=== PATIENT | female | born 1980 | race Caucasian/White ===

== ENCOUNTER 2017-08-11 09:08 | Emergency (ER) | payer BC ==
[2017-08-11 09:54] LABS: #Eosinphils 0.1 thou/uL (0.0-0.7); #Lymphocytes 2.4 thou/uL (1.20-3.40); #Monocytes 0.3 thou/uL (0.11-0.59); #Neutrophils 5.2 thou/uL (1.40-6.50); %Basophils 0.1 % (0.0-1.0); %Eosinophils 0.9 % (0.0-10.0); %Lymphocytes 29.9 % (21.0-51.0); %Monocytes 3.3 % (0.0-10.0); Hematocrit 44.6 % (36.0-47.0); Mean Platelet Volume 6.3 fL (7.4-10.4); Red Blood Cell (RBC) Count 4.98 mill/uL (4.20-5.40)
[2017-08-11 10:14] LABS: ALT (SGPT) 25 U/L (8-55); AST (SGOT) 16 U/L (5-34); Alkaline Phosphatase 57 U/L (40-150); Anion Gap 16 mmol/L (10-20); BUN (Urea Nitrogen) 22 mg/dL (7.0-18.7); Bilirubin, Total 1.1 mg/dL (0.2-1.2); Calc. Creatinine Clearance 0 mL/min (70-130); Calcium 10.2 mg/dL (7.8-10.44); Carbon Dioxide 25 mmol/L (22-29); Chloride 95 mmol/L (98-107); Estimated GFR-MDRD 47; Globulin 3.3 g/dL (2.4-3.5); Protein, Total 8.1 g/dL (6.0-8.3)
[2017-08-11] MEDS ORDERED: Fentanyl 100 MCG/2 ML VIAL ONE ×2 (10:33→11:48)
[2017-08-11] MEDS ORDERED: Ondansetron HCl/PF 4 MG/2 ML Vial ONE (10:33)
--- NOTE | 2017-08-11 11:00 | ULT ---
ULTRASOUND ABDOMEN LIMITED: (RIGHT UPPER QUADRANT) HISTORY: 37-year-old female with right upper quadrant abdominal pain, nausea, and emesis. FINDINGS: The gallbladder has normal wall thickness and has no evidence of gallstones or sludge. The hepatic e chogenicity is diffusely increased, consistent with fatty liver. The right kidney has normal echogen icity, and there is no hydronephrosis. No free fluid is identified. The inferior vena cava is visua lized. The pancreas is visualized, although ultrasound is relatively insensitive for pancreatic path ology compared to CT and MRI. There is no biliary dilation. The common duct caliber is 3 mm. IMPRESSION: 1) Hepatic steatosis. 2) Otherwise negative. lizz POS: [facility]
[2017-08-11 11:13] LABS: Bilirubin Negative (Negative); Blood, Urine Negative (Negative); Glucose, Urine (Dipstick) 250 mg/dL (Negative); Ketone, Urine Negative (Negative); Nitrite Negative (Negative); Protein, Urine (Dipstick) Negative (Neg-Trace); Urobilinogen 0.2 mg/dL (0.2-1.0)
[2017-08-11] MEDS ORDERED: diphenhydrAMINE 50 MG/ML VIAL ONE (12:15)
[2017-08-11] MEDS ORDERED: Metoclopramide HCl 10 MG/2 ML VIAL ONE (12:15)
== END 2017-08-11 13:26 | disposition home or self-care (01) ==
LOC: ERS 09:08
DX: E86.0 Dehydration (principal); K04.7 Periapical abscess without sinus; R11.2 Nausea with vomiting, unspecified; E11.9 Type 2 diabetes mellitus without complications; E78.5 Hyperlipidemia, unspecified; I10 Essential (primary) hypertension; Z79.84 Long term (current) use of oral hypoglycemic drugs; Z79.899 Other long term (current) drug therapy
CPT/HCPCS: 76705; 80053; 81003; 81025; 83690; 85025; 96361; 96365; 96375; 96376; 99406; J1200; J2405; J2765; J3010

== ENCOUNTER 2018-12-14 17:22 | Emergency (ER) | payer BC ==
[2018-12-14 18:11] LABS: Bilirubin Negative (Negative); Blood, Urine Negative (Negative); Clarity CLEAR (Clear); Glucose, Urine (Dipstick) >=1000 mg/dL (Negative); Leukocyte Negative (Negative); Nitrite Negative (Negative); Protein, Urine (Dipstick) Negative (Neg-Trace); Specific Gravity, Urine 1.018 (1.002-1.036); Urobilinogen 0.2 mg/dL (0.2-1.0)
[2018-12-14 18:12] LABS: Pregnancy Test - Urine (BHCG) Negative (Negative); Pregu Control Background? CLEAR/WHITE (CLR/WHITE); Pregu Control Bar Appear? YES (CONTROL BAR); Specific Gravity 1.018 (1.002-1.036)
[2018-12-14 19:33] LABS: #Basophils 0.1 thou/uL (0.0-0.2); #Eosinphils 0.1 thou/uL (0.0-0.7); #Lymphocytes 3.6 thou/uL (1.20-3.40); #Monocytes 0.4 thou/uL (0.11-0.59); #Neutrophils 4.5 thou/uL (1.40-6.50); %Basophils 1.1 % (0.0-1.0); %Eosinophils 1.5 % (0.0-10.0); %Monocytes 4.6 % (0.0-10.0); %Neutrophils 51.9 % (42.0-75.0); Hemoglobin 13.7 g/dL (12.0-16.0); Mean Corpuscular HGB CONC 35.2 g/dL (32.0-36.0); Mean Corpuscular Hemoglobin 30.6 pg (27.0-31.0); Mean Corpuscular Volume 86.8 fL (78.0-98.0); Mean Platelet Volume 6.9 fL (7.4-10.4); Platelet Count 296 thou/uL (130-400); RBC Distribution Width 12.3 % (11.5-14.5); Red Blood Cell (RBC) Count 4.48 mill/uL (4.20-5.40); White Blood Cell (WBC) Count 8.8 thou/uL (4.8-10.8)
[2018-12-14 19:56] LABS: ALT (SGPT) 32 U/L (8-55); AST (SGOT) 19 U/L (5-34); Alkaline Phosphatase 55 U/L (40-150); Anion Gap 18 mmol/L (10-20); BUN (Urea Nitrogen) 14 mg/dL (7.0-18.7); Bilirubin, Total 0.8 mg/dL (0.2-1.2); Calc. Creatinine Clearance 0 mL/min (70-130); Calcium 10.6 mg/dL (7.8-10.44); Carbon Dioxide 22 mmol/L (22-29); Chloride 97 mmol/L (98-107); Estimated GFR-MDRD 65; Globulin 3.2 g/dL (2.4-3.5); Glucose 267 mg/dL (70-105); Potassium 3.5 mmol/L (3.5-5.1); Protein, Total 8.2 g/dL (6.0-8.3); Sodium 133 mmol/L (136-145)
--- NOTE | 2018-12-14 22:25 | ULT ---
FEXAM: Transabdominal and transvaginal pelvic ultrasound Doppler PROVIDED CLINICAL HISTORY: Pelvic pain COMPARISON: None FINDINGS: Uterus measures about 7.1 x 4 x 4.8 cm and demonstrates an unremarkable sonographic appearance of the exception of a cervical nabothian cyst. Endometrium is normal in thickness. The right ovary is not visualized. The left ovary appears sonographically normal. Color Doppler and spectral analysis of the left ovaria n waveform is limited due to positioning of the ovary with flow demonstrated. No evidence for free pelvic fluid. IMPRESSION: No evidence for an acute process with limitations as above.
[2018-12-14] MEDS ORDERED: Ketorolac Tromethamine 30 MG/ML VIAL ONE (22:47)
[2018-12-16 17:06] LABS: Chlamydia by PCR Not Detected (NotDetected); GC by PCR Not Detected (NotDetected)
== END 2018-12-14 23:02 | disposition home or self-care (01) ==
LOC: ERS 17:22
DX: R10.30 Lower abdominal pain, unspecified (principal); R30.0 Dysuria; E78.5 Hyperlipidemia, unspecified; I10 Essential (primary) hypertension; Z79.899 Other long term (current) drug therapy; Z79.84 Long term (current) use of oral hypoglycemic drugs
CPT/HCPCS: 36416; 76856; 80053; 81003; 81025; 82010; 85025; 87480; 87510; 87660; 96361; 96374; J1885

== ENCOUNTER 2020-02-18 14:33 | Emergency (ER) | payer BC ==
[2020-02-18] MEDS ORDERED: Ketorolac Tromethamine 30 MG/ML VIAL ONE (16:17)
--- NOTE | 2020-02-18 16:17 | ULT ---
LEFT LOWER EXTREMITY VENOUS DUPLEX EXAM: History: Left leg pain and swelling. FINDINGS: Real-time color doppler evaluation of the left lower extremity was performed from groin to calf. This includes evaluation of the common femoral, superficial, and profunda femoral, saphenous, popliteal a nd posterior tibial veins. Imaging was also included in the area of posterior lower leg and area of p ain. There is a patent deep venous system. There is normal compressibility and augmentation. No hematomas or other abnormalities demonstrated in the area of pain. IMPRESSION: Unremarkable left lower extremity venous duplex exam. No evidence of DVT. POS: [facility]
[2020-02-18] MEDS ORDERED: Diazepam 10 MG/2 ML SYRINGE ONE (16:18)
[2020-02-18 16:34] LABS: #Basophils 0.1 thou/uL (0.0-0.2); #Eosinphils 0.2 thou/uL (0.0-0.7); #Lymphocytes 3.6 thou/uL (1.20-3.40); #Monocytes 0.4 thou/uL (0.11-0.59); #Neutrophils 4.9 thou/uL (1.40-6.50); %Basophils 0.9 % (0.0-1.0); %Eosinophils 1.8 % (0.0-10.0); %Lymphocytes 39.7 % (21.0-51.0); %Monocytes 4.3 % (0.0-10.0); %Neutrophils 53.3 % (42.0-75.0); Mean Corpuscular HGB CONC 36.5 g/dL (32.0-36.0); Mean Corpuscular Hemoglobin 32.5 pg (27.0-31.0); Mean Corpuscular Volume 89.1 fL (78.0-98.0); Mean Platelet Volume 6.7 fL (7.4-10.4); Platelet Count 360 thou/uL (130-400); RBC Distribution Width 11.8 % (11.5-14.5); White Blood Cell (WBC) Count 9.1 thou/uL (4.8-10.8)
[2020-02-18 17:37] LABS: ALT (SGPT) 13 U/L (8-55); AST (SGOT) 13 U/L (5-34); Albumin 4.6 g/dL (3.5-5.0); Alkaline Phosphatase 45 U/L (40-110); Anion Gap 16 mmol/L (10-20); BUN (Urea Nitrogen) 12 mg/dL (7.0-18.7); Bilirubin, Total 0.7 mg/dL (0.2-1.2); Calc. Creatinine Clearance 0 mL/min (70-130); Calcium 9.9 mg/dL (7.8-10.44); Carbon Dioxide 23 mmol/L (22-29); Chloride 105 mmol/L (98-107); Estimated GFR-MDRD 74; Globulin 2.8 g/dL (2.4-3.5); Glucose 111 mg/dL (70-105); Protein, Total 7.4 g/dL (6.0-8.3); Sodium 140 mmol/L (136-145)
== END 2020-02-18 17:55 | disposition home or self-care (01) ==
LOC: ERS 14:33
DX: M62.838 Other muscle spasm (principal); E11.9 Type 2 diabetes mellitus without complications; E78.5 Hyperlipidemia, unspecified; E78.00 Pure hypercholesterolemia, unspecified; I10 Essential (primary) hypertension; F41.9 Anxiety disorder, unspecified; Z79.4 Long term (current) use of insulin; Z79.899 Other long term (current) drug therapy
CPT/HCPCS: 80053; 82550; 85025; 85379; 96374; 96375; J1885; J3360

== ENCOUNTER 2023-03-23 09:23 | Emergency (ER) | payer BC ==
[~2023-03-23 09:23] MED LIST: Iopamidol-370 76% 500 ML MDV (1 ML CHARGE) ONE
[2023-03-23] MEDS ORDERED: Ondansetron PF 4 MG/2 ML Vial ONE (09:40)
[2023-03-23] MEDS ORDERED: Morphine 4 MG/ML VIAL ONE (09:40)
[2023-03-23] MEDS ORDERED: Pantoprazole 40 MG VIAL ONE (09:41)
[2023-03-23 09:57] LABS: #Basophils 0.1 thou/uL (0.0-0.2); #Eosinphils 0.1 thou/uL (0.0-0.7); #Monocytes 0.3 thou/uL (0.11-0.59); #Neutrophils 6.6 thou/uL (1.40-6.50); %Basophils 0.6 % (0.0-1.0); %Lymphocytes 23.8 % (21.0-51.0); %Monocytes 3.3 % (0.0-10.0); Hemoglobin 14.6 g/dL (12.0-16.0); Mean Corpuscular HGB CONC 35.4 g/dL (32.0-36.0); Mean Corpuscular Volume 87.7 fl (78.0-98.0); Mean Platelet Volume 9.4 fL (7.4-10.4); Platelet Count 324 10x3/uL (130-400); RBC Distribution Width 12.5 % (11.5-14.5); Red Blood Cell (RBC) Count 4.71 mill/uL (4.20-5.40); White Blood Cell (WBC) Count 9.3 10x3/uL (4.8-10.8)
[2023-03-23] MEDS ORDERED: Mag-Al 1200 mg/1200 mg/30 ML UDCUP ONE (10:13)
[2023-03-23 10:19] LABS: ALT (SGPT) 11 U/L (8-55); AST (SGOT) 14 U/L (5-34); Alkaline Phosphatase 51 U/L (40-110); Anion Gap 18 mmol/L (10-20); BUN (Urea Nitrogen) 17 mg/dL (7.0-18.7); Bilirubin, Total 0.9 mg/dL (0.2-1.2); Calc. Creatinine Clearance 0 mL/min (70-130); Calcium 10.4 mg/dL (7.8-10.44); Carbon Dioxide 25 mmol/L (22-29); Chloride 96 mmol/L (98-107); Estimated GFR 68; Globulin 2.8 g/dL (2.4-3.5); Glucose 182 mg/dL (70-105); Lipase 39 U/L (8-78); Protein, Total 7.8 g/dL (6.0-8.3); Sodium 135 mmol/L (136-145)
[2023-03-23 11:00] LABS: BHCG - Serum Negative (NEGATIVE); Pregs Control Background? CLEAR/WHITE (CLR/WHITE); Pregs Control Bar Appear? YES (CONTROL BAR)
[2023-03-23 11:33] LABS: Bacteria/HPF None Seen HPF (None Seen); Bilirubin Negative (Negative); Blood, Urine Negative (Negative); CAUTI Indications for Culture Pelvic or flank pain; Clarity Clear (Clear); Glucose, Urine (Dipstick) Normal (Negative); Ketone, Urine Trace mg/dL (Negative); Leukocyte Negative Leu/uL (Negative); Nitrite Negative (Negative); Protein, Urine (Dipstick) 20 mg/dL (Neg-Trace); RBC/HPF 0-3 HPF (0-3); Specific Gravity, Urine 1.018 (1.002-1.036); Urobilinogen Normal mg/dL (Less than 2); WBC/HPF 0-3 HPF (0-3)
[2023-03-23 11:36] LABS: Urine Culture Reflex No No
[2023-03-23] MEDS ORDERED: Dicyclomine 20 MG/2 ML VIAL ONE (11:55)
[2023-03-23] MEDS ORDERED: Ketorolac Tromethamine 30 MG/ML VIAL ONE (11:55)
== END 2023-03-23 12:52 | disposition home or self-care (01) ==
LOC: ERS 09:23
DX: K43.2 Incisional hernia without obstruction or gangrene (principal); R07.89 Other chest pain; E11.9 Type 2 diabetes mellitus without complications; E78.00 Pure hypercholesterolemia, unspecified; I10 Essential (primary) hypertension; Z79.84 Long term (current) use of oral hypoglycemic drugs; Z79.899 Other long term (current) drug therapy
CPT/HCPCS: 71045; 74177; 76705; 80053; 81001; 83690; 84484; 84703; 85025; 85379; 93005; 94760; 96361; 96372; 96374; 96375; C9113; J1885; J2270; J2405; Q9967

== ENCOUNTER 2023-04-09 09:37 | Outpatient (CLI) | payer BC ==
[2023-04-09 10:27] LABS: #Basophils 0.1 10x3/uL (0.0-0.2); #Eosinphils 0.3 10x3/uL (0.0-0.5); #Monocytes 0.4 10x3/uL (0.0-1.1); #Neutrophils 6.3 10x3/uL (1.5-8.4); %Basophils 0.9 % (0.0-2.0); %Eosinophils 2.8 % (0.0-6.0); %Lymphocytes 24.3 % (18.0-47.0); %Monocytes 3.8 % (0.0-10.0); %Neutrophils 67.7 % (40.0-75.0); Hemoglobin 13.5 g/dL (12.0-15.5); Mean Corpuscular HGB CONC 33.8 g/dL (32.0-36.0); Mean Corpuscular Hemoglobin 30.7 pg (27.0-33.0); Mean Corpuscular Volume 90.9 fl (81.6-98.3); Mean Platelet Volume 9.2 fl (7.4-10.4); Platelet Count 333 10x3/uL (150-450); RBC Distribution Width 13.2 % (11.5-14.5); White Blood Cell (WBC) Count 9.3 10x3/uL (3.5-10.5)
[2023-04-09 10:43] LABS: Anion Gap 17 mmol/L (10-20); BUN (Urea Nitrogen) 10 mg/dL (7.0-18.7); Calc. Creatinine Clearance 0 mL/min (70-130); Calcium 9.7 mg/dL (7.8-10.44); Carbon Dioxide 26 mmol/L (22-29); Chloride 102 mmol/L (98-107); Estimated GFR 87; Glucose 114 mg/dL (70-105); Potassium 4.2 mmol/L (3.5-5.1); Sodium 141 mmol/L (136-145)
== END 2023-04-09 09:38 | disposition home or self-care (01) ==
LOC: LABBT 09:37
PROVIDERS: ATTEND Surgery
DX: Z01.818 Encounter for other preprocedural examination (principal); K43.2 Incisional hernia without obstruction or gangrene
CPT/HCPCS: 80048; 85025; 93005; 93010

== ENCOUNTER 2023-04-14 10:51 | Day surgery (SDC) | payer BC ==
[2023-04-09 10:09] VITALS: BMI 27.4
[2023-04-14] MEDS ORDERED: Bupivacaine/Epinephrine 0.25% 30 ML VIAL ONE (11:56)
[2023-04-14] MEDS ORDERED: fentaNYL PF 100 MCG/2 ML SYRINGE ONE ×2 (12:33→14:29)
[2023-04-14] MEDS ORDERED: Sodium Chloride 0.9% 100 ML ONE (12:40)
[2023-04-14] MEDS ORDERED: Midazolam HCl 2 mg/2 ml Vial ONE (12:40)
[2023-04-14] MEDS ORDERED: CEFAZOLIN 2 GM VIAL ONE (12:40)
[2023-04-14] MEDS ORDERED: Ondansetron PF 4 MG/2 ML Vial ONE (12:53)
[2023-04-14] MEDS ORDERED: Ketorolac Tromethamine 30 MG/ML VIAL ONE (12:53)
[2023-04-14] MEDS ORDERED: PHENYLEPHRINE-NS 100 MCG/ML 10 ML SYRINGE ONE (12:53)
[2023-04-14] MEDS ORDERED: Rocuronium Bromide 10 MG/ML (10ML VIAL) ONE (12:53)
[2023-04-14] MEDS ORDERED: Lidocaine 1% PF 5 ML VIAL ONE (12:53)
[2023-04-14] MEDS ORDERED: Glycopyrrolate 0.2 MG/ML 5 ML SYRINGE ONE (12:53)
[2023-04-14] MEDS ORDERED: PROPOFOL 200 MG/20 ML VIAL ONE (12:53)
[2023-04-14] MEDS ORDERED: NEOSTIGMINE 3 MG/3 ML SYR 3 MG/3 ML SYRINGE ONE (12:53)
[2023-04-14] MEDS ORDERED: HYDROcodone/Acetaminophen 5/325 mg Tablet ONE (15:22)
== END 2023-04-14 16:08 | disposition home or self-care (01) ==
LOC: SDC 10:51
PROVIDERS: ATTEND Surgery
PROC: 0WUF4JZ Supplement Abdominal Wall with Synthetic Substitute, Percutaneous Endoscopic Approach (ICD-10-PCS; principal; 2023-04-14)
DX: K43.2 Incisional hernia without obstruction or gangrene (principal); K43.9 Ventral hernia without obstruction or gangrene; I10 Essential (primary) hypertension; E11.9 Type 2 diabetes mellitus without complications; E78.5 Hyperlipidemia, unspecified; Z87.891 Personal history of nicotine dependence; Z79.899 Other long term (current) drug therapy; Z79.84 Long term (current) use of oral hypoglycemic drugs; Z88.8 Allergy status to other drugs, medicaments and biological substances; Z88.6 Allergy status to analgesic agent
CPT/HCPCS: C1781; J1885; J2250; J2405; J2704; J3490

== ENCOUNTER 2023-04-18 15:58 | Emergency (ER) | payer BC ==
[2023-04-18] MEDS ORDERED: Ondansetron PF 4 MG/2 ML Vial ONE (16:18)
[2023-04-18] MEDS ORDERED: Morphine 4 MG/ML VIAL ONE (16:18)
[2023-04-18 16:29] LABS: #Basophils 0.1 thou/uL (0.0-0.2); #Eosinphils 0.2 thou/uL (0.0-0.7); #Monocytes 0.4 thou/uL (0.11-0.59); #Neutrophils 7.5 thou/uL (1.40-6.50); %Basophils 0.7 % (0.0-1.0); %Eosinophils 1.9 % (0.0-10.0); %Lymphocytes 17.1 % (21.0-51.0); %Monocytes 4.4 % (0.0-10.0); %Neutrophils 75.6 % (42.0-75.0); Hematocrit 37.6 % (36.0-47.0); Mean Corpuscular HGB CONC 34.6 g/dL (32.0-36.0); Mean Corpuscular Hemoglobin 31.3 pg (27.0-31.0); Mean Corpuscular Volume 90.4 fl (78.0-98.0); Mean Platelet Volume 9.6 fL (7.4-10.4); Platelet Count 373 10x3/uL (130-400); Red Blood Cell (RBC) Count 4.16 mill/uL (4.20-5.40); White Blood Cell (WBC) Count 9.9 10x3/uL (4.8-10.8)
[2023-04-18 16:36] LABS: BHCG - Serum Negative (NEGATIVE); Pregs Control Background? CLEAR/WHITE (CLR/WHITE); Pregs Control Bar Appear? YES (CONTROL BAR)
[2023-04-18 16:51] LABS: ALT (SGPT) 8 U/L (8-55); AST (SGOT) 16 U/L (5-34); Albumin 4.7 g/dL (3.5-5.0); Alkaline Phosphatase 54 U/L (40-110); Anion Gap 18 mmol/L (10-20); BUN (Urea Nitrogen) 13 mg/dL (7.0-18.7); Bilirubin, Total 0.8 mg/dL (0.2-1.2); Calc. Creatinine Clearance 0 mL/min (70-130); Calcium 10.3 mg/dL (7.8-10.44); Carbon Dioxide 25 mmol/L (22-29); Chloride 98 mmol/L (98-107); Estimated GFR 89; Globulin 3.5 g/dL (2.4-3.5); Glucose 125 mg/dL (70-105); Protein, Total 8.2 g/dL (6.0-8.3); Sodium 137 mmol/L (136-145)
[2023-04-18] MEDS ORDERED: Acetaminophen 500 MG TAB ONE (18:17)
[2023-04-18] MEDS ORDERED: Promethazine HCl 12.5 MG in Sodium Chloride 0.9% 50 ML IVPB SCH (18:30)
[2023-04-18 18:34] LABS: Bacteria/HPF None Seen HPF (None Seen); Bilirubin Negative (Negative); Blood, Urine Negative (Negative); CAUTI Indications for Culture Pelvic or flank pain; Clarity Clear (Clear); Glucose, Urine (Dipstick) Normal (Negative); Ketone, Urine 10 mg/dL (Negative); Leukocyte Negative Leu/uL (Negative); Nitrite Negative (Negative); Protein, Urine (Dipstick) Negative (Neg-Trace); RBC/HPF None Seen HPF (0-3); Specific Gravity, Urine 1.013 (1.002-1.036); Squamous Epithelial 0-3 HPF (0-3); Urobilinogen Normal mg/dL (Less than 2); WBC/HPF 0-3 HPF (0-3)
[2023-04-18 18:36] LABS: Urine Culture Reflex No No
[2023-04-18 19:35] LABS: Lactic Acid 0.8 mmol/L (0.5-2.2)
== END 2023-04-18 19:19 | disposition home or self-care (01) ==
LOC: ERS 15:58
DX: K91.872 Postprocedural seroma of a digestive system organ or structure following a digestive system procedure (principal); R11.10 Vomiting, unspecified; E11.9 Type 2 diabetes mellitus without complications; E78.00 Pure hypercholesterolemia, unspecified; I10 Essential (primary) hypertension; Z79.899 Other long term (current) drug therapy; Z79.84 Long term (current) use of oral hypoglycemic drugs
CPT/HCPCS: 36415; 74177; 80053; 81001; 83605; 84484; 84703; 85025; 87040; 87149; 93005; 96361; 96365; 96375; J2270; J2405; J2550; Q9967

== ENCOUNTER 2023-04-29 11:53 | Observation (INO) | payer BC ==
[2023-04-29] MEDS ORDERED: Morphine 4 MG/ML VIAL ONE ×2 (12:10→13:44)
[2023-04-29] MEDS ORDERED: Ondansetron PF 4 MG/2 ML Vial ONE (12:39)
[2023-04-29 12:58] LABS: #Basophils 0.1 thou/uL (0.0-0.2); #Eosinphils 0.1 thou/uL (0.0-0.7); #Monocytes 0.4 thou/uL (0.11-0.59); #Neutrophils 5.7 thou/uL (1.40-6.50); %Eosinophils 1.7 % (0.0-10.0); %Lymphocytes 22.4 % (21.0-51.0); %Monocytes 4.9 % (0.0-10.0); %Neutrophils 69.5 % (42.0-75.0); Hematocrit 38.2 % (36.0-47.0); Hemoglobin 13.2 g/dL (12.0-16.0); Mean Corpuscular HGB CONC 34.6 g/dL (32.0-36.0); Mean Corpuscular Hemoglobin 30.7 pg (27.0-31.0); Mean Corpuscular Volume 88.8 fl (78.0-98.0); Mean Platelet Volume 9.3 fL (7.4-10.4); Platelet Count 457 10x3/uL (130-400); RBC Distribution Width 12.8 % (11.5-14.5); White Blood Cell (WBC) Count 8.1 10x3/uL (4.8-10.8)
[2023-04-29 13:10] LABS: INR-International Normal Ratio 0.9; Prothrombin Time 12.4 sec (12.0-14.7)
[2023-04-29 13:11] LABS: PTT 31.8 sec (22.9-36.1)
[2023-04-29 13:29] LABS: ALT (SGPT) 7 U/L (8-55); AST (SGOT) 11 U/L (5-34); Albumin 4.6 g/dL (3.5-5.0); Alkaline Phosphatase 47 U/L (40-110); Anion Gap 18 mmol/L (10-20); BUN (Urea Nitrogen) 16 mg/dL (7.0-18.7); Bilirubin, Total 0.8 mg/dL (0.2-1.2); Calc. Creatinine Clearance 0 mL/min (70-130); Calcium 10.2 mg/dL (7.8-10.44); Carbon Dioxide 25 mmol/L (22-29); Chloride 93 mmol/L (98-107); Estimated GFR 89; Glucose 148 mg/dL (70-105); Lipase 88 U/L (8-78); Potassium 3.5 mmol/L (3.5-5.1); Protein, Total 7.6 g/dL (6.0-8.3); Sodium 132 mmol/L (136-145)
[2023-04-29 13:37] LABS: BHCG - Serum Negative (NEGATIVE); Pregs Control Bar Appear? YES (CONTROL BAR)
[2023-04-29 13:38] LABS: Pregs Control Background? CLEAR/WHITE (CLR/WHITE)
[2023-04-29 14:17] LABS: Bacteria/HPF 2+ HPF (None Seen); Bilirubin Negative (Negative); Blood, Urine 3+ (Negative); CAUTI Indications for Culture Dysuria,urgency,freq; Clarity Turbid (Clear); Glucose, Urine (Dipstick) Normal (Negative); Ketone, Urine 10 mg/dL (Negative); Leukocyte Negative Leu/uL (Negative); Nitrite Negative (Negative); Protein, Urine (Dipstick) 200 mg/dL (Neg-Trace); Specific Gravity, Urine 1.022 (1.002-1.036); Urobilinogen Normal mg/dL (Less than 2); pH, Urine 8.5 (5.0-9.0)
[2023-04-29 14:18] LABS: Urine Culture Reflex No No
[2023-04-29] MEDS ORDERED: Morphine 4 MG/ML VIAL SLOW IVP PRN ×2 (14:30→19:26)
[2023-04-29] MEDS ORDERED: Sodium Chloride 0.9% 1,000 ML IV SCH (14:30)
[2023-04-29] MEDS ORDERED: Piperacillin/Tazobactam 3.375 GM VIAL ONE (14:41)
[2023-04-29] MEDS ORDERED: Vancomycin 1 GM/200 ML (FROZEN) BAG ONE (15:16)
[2023-04-29 16:25] LABS: Lactic Acid 0.8 mmol/L (0.5-2.2)
[2023-04-29 17:15] VITALS: BMI 25.9
[2023-04-29] MEDS ORDERED: Glucagon 1 MG/ML KIT IM PRN (19:26)
[2023-04-29] MEDS ORDERED: Promethazine HCl 25 MG/ML VIAL IM PRN (19:26)
[2023-04-29] MEDS ORDERED: Ipratropium/Albuterol 3 ML NEB NEB PRN (19:26)
[2023-04-29] MEDS ORDERED: Dextrose 5% in Water 1,000 ML IV PRN (19:26)
[2023-04-29] MEDS ORDERED: hydrALAZINE 20 MG/ML VIAL SLOW IVP PRN (19:26)
[2023-04-29] MEDS ORDERED: Dextrose 50% Abboject 50 ML SYRINGE SLOW IVP PRN (19:26)
[2023-04-29] MEDS: Famotidine 20 MG TAB PO SCH (20:23)
[2023-04-29] MEDS: traMADol HCl 50 MG TAB PO PRN (20:23)
[2023-04-29] MEDS: Famotidine/PF 20 mg/2ml Vial SLOW IVP SCH (20:24)
[2023-04-29] MEDS: Ondansetron PF 4 MG/2 ML Vial IVP PRN (22:35)
[2023-04-30] MEDS: Ondansetron PF 4 MG/2 ML Vial IVP PRN ×2 (04:13→09:32)
[2023-04-30] MEDS: D5 1/2 NS w/20 mEq KCL 1,000 ML IV SCH ×2 (04:13→05:40)
[2023-04-30 07:55] VITALS: TEMP 97.8
[2023-04-30] MEDS: Famotidine 20 MG TAB PO SCH (09:33)
[2023-04-30] MEDS: Famotidine/PF 20 mg/2ml Vial SLOW IVP SCH (09:36)
[2023-04-30] MEDS: traMADol HCl 50 MG TAB PO PRN (09:37)
[2023-04-30 11:31] VITALS: BP 123/77
[2023-04-30] MEDS ORDERED: HYDROcodone/Acetaminophen 7.5/325 mg Tablet PO PRN (13:31)
== END 2023-04-30 15:30 | disposition home or self-care (01) ==
LOC: ERS 11:53 → SJJU 14:45
PROVIDERS: ADMIT Surgery; ATTEND Surgery
DX: R10.9 Unspecified abdominal pain (principal); L76.32 Postprocedural hematoma of skin and subcutaneous tissue following other procedure
CPT/HCPCS: 36415; 36416; 74177; 80053; 81001; 83605; 83690; 84703; 85025; 85610; 85730; 87040; 87086; 94760; 96361; 96365; 96367; 96375; 96376; G0378; J2270; J2405; J2543; J3370-JW; J3480; J7050; Q9967

== ENCOUNTER 2023-05-13 07:32 | Emergency (ER) | payer BC ==
[2023-05-13 08:22] LABS: #Basophils 0.1 thou/uL (0.0-0.2); #Eosinphils 0.1 thou/uL (0.0-0.7); #Monocytes 0.4 thou/uL (0.11-0.59); #Neutrophils 7.6 thou/uL (1.40-6.50); %Basophils 0.5 % (0.0-1.0); %Eosinophils 1.2 % (0.0-10.0); %Lymphocytes 18.2 % (21.0-51.0); %Monocytes 3.5 % (0.0-10.0); %Neutrophils 76.3 % (42.0-75.0); Hematocrit 45.5 % (36.0-47.0); Hemoglobin 15.8 g/dL (12.0-16.0); Mean Corpuscular HGB CONC 34.7 g/dL (32.0-36.0); Mean Corpuscular Hemoglobin 31.7 pg (27.0-31.0); Mean Corpuscular Volume 91.2 fl (78.0-98.0); Platelet Count 382 10x3/uL (130-400); RBC Distribution Width 13.3 % (11.5-14.5); Red Blood Cell (RBC) Count 4.99 mill/uL (4.20-5.40)
[2023-05-13 08:25] LABS: Bacteria/HPF None Seen HPF (None Seen); Bilirubin Negative (Negative); Blood, Urine Negative (Negative); CAUTI Indications for Culture Dysuria,urgency,freq; Clarity Clear (Clear); Glucose, Urine (Dipstick) Normal (Negative); Ketone, Urine Trace mg/dL (Negative); Leukocyte Negative Leu/uL (Negative); Nitrite Negative (Negative); Protein, Urine (Dipstick) Negative (Neg-Trace); RBC/HPF 0-3 HPF (0-3); Specific Gravity, Urine 1.017 (1.002-1.036); Urobilinogen Normal mg/dL (Less than 2); WBC/HPF 0-3 HPF (0-3); pH, Urine 6.5 (5.0-9.0)
[2023-05-13 08:27] LABS: Urine Culture Reflex No No
[2023-05-13 08:58] LABS: ALT (SGPT) 9 U/L (8-55); AST (SGOT) 12 U/L (5-34); Albumin 5.7 g/dL (3.5-5.0); Alkaline Phosphatase 58 U/L (40-110); Anion Gap 19 mmol/L (10-20); BUN (Urea Nitrogen) 13 mg/dL (7.0-18.7); Bilirubin, Total 0.8 mg/dL (0.2-1.2); Calc. Creatinine Clearance 0 mL/min (70-130); Carbon Dioxide 24 mmol/L (22-29); Chloride 96 mmol/L (98-107); Estimated GFR 84; Globulin 3.1 g/dL (2.4-3.5); Glucose 121 mg/dL (70-105); Lipase 122 U/L (8-78); Potassium 3.9 mmol/L (3.5-5.1); Protein, Total 8.8 g/dL (6.0-8.3); Sodium 135 mmol/L (136-145)
[2023-05-13 09:02] LABS: Troponin I Less than 0.010 ng/mL (< 0.028)
[2023-05-13] MEDS ORDERED: Ondansetron PF 4 MG/2 ML Vial ONE (09:12)
[2023-05-13] MEDS ORDERED: Morphine 4 MG/ML VIAL ONE (09:12)
[2023-05-13] MEDS ORDERED: Iopamidol-370 76% 500 ML MDV (1 ML CHARGE) ONE (10:09)
== END 2023-05-13 11:01 | disposition home or self-care (01) ==
LOC: ERS 07:32
DX: K29.70 Gastritis, unspecified, without bleeding (principal); E11.9 Type 2 diabetes mellitus without complications; E78.00 Pure hypercholesterolemia, unspecified; I10 Essential (primary) hypertension; Z79.84 Long term (current) use of oral hypoglycemic drugs; Z79.899 Other long term (current) drug therapy; Z79.01 Long term (current) use of anticoagulants
CPT/HCPCS: 36415; 74177; 80053; 81001; 83690; 84484; 85025; 93005; 96361; 96374; 96375; J2270; J2405; Q9967

== ENCOUNTER 2023-06-26 18:10 | Emergency (ER) | payer BC ==
[2023-06-26] MEDS ORDERED: Ondansetron PF 4 MG/2 ML Vial ONE (18:44)
[2023-06-26] MEDS ORDERED: Morphine 4 MG/ML VIAL ONE (18:44)
[2023-06-26 18:55] LABS: #Basophils 0.1 thou/uL (0.0-0.2); #Eosinphils 0.1 thou/uL (0.0-0.7); #Monocytes 0.5 thou/uL (0.11-0.59); #Neutrophils 8.4 thou/uL (1.40-6.50); %Basophils 0.6 % (0.0-1.0); %Eosinophils 0.7 % (0.0-10.0); %Lymphocytes 18.7 % (21.0-51.0); %Monocytes 4.8 % (0.0-10.0); %Neutrophils 74.8 % (42.0-75.0); Hematocrit 40.5 % (36.0-47.0); Hemoglobin 14.2 g/dL (12.0-16.0); Mean Corpuscular HGB CONC 35.1 g/dL (32.0-36.0); Mean Corpuscular Hemoglobin 30.9 pg (27.0-31.0); Platelet Count 380 10x3/uL (130-400); RBC Distribution Width 12.2 % (11.5-14.5); White Blood Cell (WBC) Count 11.2 10x3/uL (4.8-10.8)
[2023-06-26 19:01] LABS: Bacteria/HPF None Seen HPF (None Seen); Bilirubin Negative (Negative); Blood, Urine Negative (Negative); CAUTI Indications for Culture Pelvic or flank pain; Clarity Clear (Clear); Glucose, Urine (Dipstick) Normal (Negative); Ketone, Urine 60 mg/dL (Negative); Leukocyte Negative Leu/uL (Negative); Nitrite Negative (Negative); Protein, Urine (Dipstick) 100 mg/dL (Neg-Trace); RBC/HPF 0-3 HPF (0-3); Specific Gravity, Urine 1.028 (1.002-1.036); WBC/HPF 0-3 HPF (0-3); pH, Urine 8.5 (5.0-9.0)
[2023-06-26 19:02] LABS: BHCG - Serum Negative (NEGATIVE); Pregs Control Background? CLEAR/WHITE (CLR/WHITE); Pregs Control Bar Appear? YES (CONTROL BAR)
[2023-06-26 19:03] LABS: Urine Culture Reflex No No
[2023-06-26 19:24] LABS: ALT (SGPT) 10 U/L (8-55); AST (SGOT) 11 U/L (5-34); Albumin 5.1 g/dL (3.5-5.0); Alkaline Phosphatase 49 U/L (40-110); Anion Gap 15 mmol/L (10-20); BUN (Urea Nitrogen) 13 mg/dL (7.0-18.7); Bilirubin, Total 0.8 mg/dL (0.2-1.2); Calc. Creatinine Clearance 0 mL/min (70-130); Calcium 10.1 mg/dL (7.8-10.44); Carbon Dioxide 27 mmol/L (22-29); Chloride 96 mmol/L (98-107); Estimated GFR 92; Globulin 2.6 g/dL (2.4-3.5); Glucose 120 mg/dL (70-105); Lipase 47 U/L (8-78); Magnesium 1.8 mg/dL (1.6-2.6); Potassium 3.3 mmol/L (3.5-5.1); Protein, Total 7.7 g/dL (6.0-8.3); Sodium 135 mmol/L (136-145)
[2023-06-26] MEDS ORDERED: Sucralfate 1 GM/10 ML UDCUP ONE (20:52)
[2023-06-26] MEDS ORDERED: Haloperidol Lactate 5 MG/ML VIAL ONE (20:52)
[2023-06-26] MEDS ORDERED: diphenhydrAMINE 50 MG/ML VIAL ONE (20:52)
== END 2023-06-26 21:50 | disposition home or self-care (01) ==
LOC: ERS 18:10
DX: R10.9 Unspecified abdominal pain (principal); E11.9 Type 2 diabetes mellitus without complications; E78.00 Pure hypercholesterolemia, unspecified; I10 Essential (primary) hypertension; Z79.84 Long term (current) use of oral hypoglycemic drugs; Z79.899 Other long term (current) drug therapy
CPT/HCPCS: 74177; 80053; 81001; 83690; 83735; 84703; 85025; 93005; 96361; 96374; 96375; J1200; J1630; J2270; J2405; Q9967

== ENCOUNTER 2024-03-12 13:43 | Emergency (ER) | payer BC, SELFPAY ==
[2024-03-12 15:03] LABS: #Basophils 0.05 10x3/uL (0.0-0.2); %Basophils 0.5 % (0.0-1.0); %Eosinophils 0.3 % (0.0-10.0); %Lymphocytes 9.9 % (21.0-51.0); %Monocytes 2.3 % (0.0-10.0); %Neutrophils 86.7 % (42.0-75.0); Hematocrit 43.2 % (36.0-47.0); Hemoglobin 15.3 g/dL (12.0-16.0); Mean Corpuscular HGB CONC 35.4 g/dL (32.0-36.0); Mean Corpuscular Hemoglobin 31.9 pg (27.0-31.0); Mean Corpuscular Volume 90.2 fL (78.0-98.0); Mean Platelet Volume 8.8 fL (7.4-10.4); Platelet Count 365 10x3/uL (130-400); RBC Distribution Width 12.3 % (11.5-14.5); Red Blood Cell (RBC) Count 4.79 mill/uL (4.20-5.40)
[2024-03-12 15:16] LABS: BHCG - Serum Negative (NEGATIVE); Pregs Control Background? CLEAR/WHITE (CLR/WHITE); Pregs Control Bar Appear? YES (CONTROL BAR)
[2024-03-12] MEDS ORDERED: Acetaminophen 325 MG TAB ONE (15:17)
[2024-03-12] MEDS ORDERED: Cyclobenzaprine 10 MG TAB ONE (15:18)
[2024-03-12] MEDS ORDERED: Ketorolac Tromethamine 30 MG (1 mL) VIAL ONE (15:18)
[2024-03-12] MEDS ORDERED: Ondansetron ODT 4 MG TAB ONE (15:18)
[2024-03-12 15:20] LABS: ALT (SGPT) 10 U/L (8-55); AST (SGOT) 13 U/L (5-34); Albumin 4.6 g/dL (3.5-5.0); Alkaline Phosphatase 51 U/L (40-110); Anion Gap 16 mmol/L (10-20); BUN (Urea Nitrogen) 19 mg/dL (7.0-18.7); Bilirubin, Total 1.2 mg/dL (0.2-1.2); Calc. Creatinine Clearance 0 mL/min (70-130); Calcium 10.1 mg/dL (7.8-10.44); Carbon Dioxide 24 mmol/L (22-29); Chloride 103 mmol/L (98-107); Estimated GFR 91; Globulin 3.2 g/dL (2.4-3.5); Glucose 160 mg/dL (70-105); Lipase 30 U/L (8-78); Protein, Total 7.8 g/dL (6.0-8.3); Sodium 139 mmol/L (136-145)
[2024-03-12] MEDS ORDERED: HYDROcodone/Acetaminophen 5/325 mg Tablet ONE (17:13)
[2024-03-12] MEDS ORDERED: Diazepam 5 MG TAB ONE (17:44)
[2024-03-12 18:13] LABS: Bacteria/HPF None Seen HPF (None Seen); Bilirubin Negative (Negative); Blood, Urine 3+ (Negative); CAUTI Indications for Culture Alt mental st,lethar; Clarity Extra Turbid (Clear); Glucose, Urine (Dipstick) Normal (Negative); Ketone, Urine 60 mg/dL (Negative); Leukocyte Negative Leu/uL (Negative); Nitrite Negative (Negative); Protein, Urine (Dipstick) 70 mg/dL (Neg-Trace); Specific Gravity, Urine 1.031 (1.002-1.036); Squamous Epithelial 0-3 HPF (0-3); Urobilinogen Normal mg/dL (Less than 2); WBC/HPF 0-3 HPF (0-3)
[2024-03-12 18:19] LABS: Urine Culture Reflex No No
== END 2024-03-12 19:13 | disposition home or self-care (01) ==
LOC: ERS 13:43
DX: M54.50 Low back pain, unspecified (principal); M62.830 Muscle spasm of back; I10 Essential (primary) hypertension; E11.9 Type 2 diabetes mellitus without complications; X50.0XXA Overexertion from strenuous movement or load, initial encounter; Y93.89 Activity, other specified; Y92.096 Garden or yard of other non-institutional residence as the place of occurrence of the external cause; Z79.4 Long term (current) use of insulin; Z79.899 Other long term (current) drug therapy
CPT/HCPCS: 36415; 72100; 80053; 81001; 83690; 84703; 85025; 96372; J1885; Q0162